=== PATIENT | male | born 1940 | race Caucasian/White ===

== ENCOUNTER 2017-05-27 14:53 | Observation (INO) | payer MEDICARE ==
[~2017-05-27] VITALS: Ht 170.2 cm; Wt 80.0 kg
[~2017-05-27 14:53] MED LIST: ATEN50 PO; COUM5TAB PO; HYDR-2768 PO; LOSA50TA PO; OMEP20CA5 PO; PERC10TA27 PO; PRAV20 PO
[2017-05-27 15:02] VITALS: BP 229/114; PULSE 76; RESP 16; TEMP 98; O2SAT 97
--- NOTE | 2017-05-27 15:06 | PD ---
HPI Chief Complaint: Pain: Acute or Chronic Time Seen by Provider: 15:06 Travel History International Travel<30 days: No Contact w/Intl Traveler<30days: No Traveled to known affect area: No History of Present Illness HPI 76-year-old male came to the emergency room with history of lower back pain radiating to the left hip up to the left knee. Patient says this has been going on for past 2 weeks. Patient has history of chronic lower back pain and in fact has had multiple surgeries done by Dr. Marrero in the past. He also has a TENS unit but the battery has run out. He goes to physical therapy but for past 3-4 days he has been unable to get out of bed because of the severe pain. He says usually his pain radiates down his right leg but the left hip and leg pain is new. He is having hard time even turning on the bed because of the pain. No history of fever or chills. No history of recent trauma. is here with him who is giving majority of the history. She was unable to get him out of the bed and had to call EMS who brought him here. Patient is awake and answering questions appropriately however. He is hypertensive and his thinks it's mainly because of the pain. [facility] Past Medical History Narrative Medical List of his past medical, surgical, social and family history is reviewed from the nursing note. Asthma: Yes (CHILDHOOD) Blood Disorders: No Heart Rhythm Problems: Yes Cancer: Yes (prostate ca) Cardiovascular Problems: No High Cholesterol: Yes Chemotherapy: Yes Chest Pain: No Cerebrovascular Accident: Yes Diabetes: No Diminished Hearing: No Deep Vein Thrombosis: Yes Endocrine: No GERD: No Genitourinary: No Headaches: Yes Hepatitis: No Hiatal Hernia: No Hypertension: Yes Immune Disorder: No Implanted Vascular Access Dvce: Yes Musculoskeletal: Yes (arthritis neck pain) Neurologic: Yes (stroke 2003 , PE L leg 2008 ) Psychiatric: No Reproductive: No Respiratory: No Thyroid Disease: No Ulcer: No Past Surgical History Abdominal Surgery: Yes (abd infection post battery insertion for spinal cord stiumlator 2010) AICD: No Body Medical Devices: wires from stimulator in back, HARDWARE IN BACK, WITH CAGES Cardiac Surgery: No Ear Surgery: No Endocrine Surgery: No Genitourinary Surgery: No Gynecologic Surgery: No Joint Replacement: No Neurologic Surgery: Yes (STIMULATER ON 2008/REMOVED) Oral Surgery: No Pacemaker: No Thoracic Surgery: No Other Surgery: Yes (MANY BACK SURGERYS 2 CAGES TO L2 L4) Social History Alcohol Use: No Tobacco Use: No Substance Use: No Allergies-Medications (Allergen,Severity, Reaction): Coded Allergies: Penicillin (Verified Allergy, Severe, ARM SWELLED AT SITE, 05/27/17) MRI PRECAUTION (Verified Adverse Reaction, Severe, 05/27/17) cages and screws in back and neck Comments List of the allergies reviewed from the nursing note. Reported Meds & Prescriptions Reported Meds & Active Scripts Active Reported Atenolol 100 Mg Tab 100 Mg PO DAILY Hydrochlorothiazide 12.5 Mg Tab 12.5 Mg PO DAILY Omeprazole 20 Mg Cap 20 Mg PO BID Percocet (Oxycodone-Acetaminophen) 10-325 mg Tab 1 Tab PO BID Pravastatin 40 Mg Tab 40 Mg PO HS Aspirin 81 (Aspirin) 81 Mg Tabdr 81 Mg PO HS Amlodipine (Amlodipine Besylate) 10 Mg Tab 10 Mg PO DAILY Losartan (Losartan Potassium) 50 Mg Tab 50 Mg PO DAILY Narrative Medication List of the home medications reviewed from the nursing note. Review of Systems Except as stated in HPI: all other systems reviewed are Neg Physical Exam Narrative GENERAL: Awake, alert, moderate distress SKIN: Focused skin assessment warm/dry. HEAD: Atraumatic. Normocephalic. EYES: Pupils equal and round. No scleral icterus. No injection or drainage. ENT: No nasal bleeding or discharge. Mucous membranes pink and moist. NECK: Trachea midline. No JVD. CARDIOVASCULAR: Regular rate and rhythm. No murmur appreciated. RESPIRATORY: No accessory muscle use. Clear to auscultation. Breath sounds equal bilaterally. GASTROINTESTINAL: Abdomen soft, non-tender, nondistended. Hepatic and splenic margins not palpable. MUSCULOSKELETAL: No obvious deformities. No clubbing. No cyanosis. No edema. Tender over the left greater trochanter. Decreased range of motion at the hip joint and knee joint due to the pain NEUROLOGICAL: Awake and alert. No obvious cranial nerve deficits. Motor grossly within normal limits. Normal speech. PSYCHIATRIC: Appropriate mood and affect; insight and judgment normal. Data Data Last Documented VS Vital Signs Date Time Temp Pulse Resp B/P Pulse Ox O2 Delivery O2 Flow Rate FiO2 05/27/17 15:02 98.0 76 16 229/114 97 Orders Complete Blood Count With Diff (05/27/17 15:49) Basic Metabolic Panel (Bmp) (05/27/17 15:49) C-Reactive Protein (Crp) (05/27/17 15:49) Westergren Sedimentation Rate (05/27/17 15:49) Hydromorphone Pf Inj (Dilaudid Pf Inj) (05/27/17 16:00) Ct Hip W Iv Contrast (05/27/17 ) Ct Pelvis W Iv Contrast(Rout) (05/27/17 16:13) Ct Lumb Spine W Iv Contrast (05/27/17 ) Iohexol 350 Inj (Omnipaque 350 Inj) (05/27/17 18:32) Admit Order (Ed Use Only) (05/27/17 ) Labs Laboratory Tests Test 05/27/17 16:40 White Blood Count 10.2 TH/MM3 Red Blood Count 5.58 MIL/MM3 Hemoglobin 14.9 GM/DL Hematocrit 45.3 % Mean Corpuscular Volume 81.1 FL Mean Corpuscular Hemoglobin 26.7 PG Mean Corpuscular Hemoglobin 33.0 % Concent Red Cell Distribution Width 16.0 % Platelet Count 175 TH/MM3 Mean Platelet Volume 8.9 FL Neutrophils (%) (Auto) 81.9 % Lymphocytes (%) (Auto) 11.0 % Monocytes (%) (Auto) 6.2 % Eosinophils (%) (Auto) 0.6 % Basophils (%) (Auto) 0.3 % Neutrophils # (Auto) 8.4 TH/MM3 Lymphocytes # (Auto) 1.1 TH/MM3 Monocytes # (Auto) 0.6 TH/MM3 Eosinophils # (Auto) 0.1 TH/MM3 Basophils # (Auto) 0.0 TH/MM3 CBC Comment DIFF FINAL Differential Comment Erythrocyte Sedimentation Rate 6 mm/hr Sodium Level 139 MEQ/L Potassium Level 4.0 MEQ/L Chloride Level 104 MEQ/L Carbon Dioxide Level 29.1 MEQ/L Anion Gap 6 MEQ/L Blood Urea Nitrogen 21 MG/DL Creatinine 1.18 MG/DL Estimat Glomerular Filtration 60 ML/MIN Rate Random Glucose 96 MG/DL Calcium Level 9.5 MG/DL C-Reactive Protein LESS THAN 0.29 MG/DL MDM Medical Decision Making Medical Screen Exam Complete: Yes Emergency Medical Condition: Yes Medical Record Reviewed: Yes Differential Diagnosis Acute on chronic pain, greater trochanter bursitis, myositis Narrative Course 5:09 PM awaiting for the blood test and the CAT scan to be done and resulted. Patient was medicated for pain. Patient cannot get an MRI due to the TENS unit and the wire going up into his spine. Case had been signed over to the oncoming ER physician. Procedures EKG Prior to Arrival: Ricco Sandhu MD May 27, 2017 15:06
[2017-05-27] MEDS ORDERED: HYDROmorphone HCL PF 1 MG/ML VIAL IV PUSH ONE (16:00)
[2017-05-27] MEDS ORDERED: OMEP20CA2 PO (16:28)
[2017-05-27] MEDS ORDERED: ASPI-110 PO (16:28)
[2017-05-27] MEDS ORDERED: PERC10TA27 PO (16:28)
[2017-05-27] MEDS ORDERED: LOSA50TA PO (16:28)
[2017-05-27] MEDS ORDERED: PRAV40TA2 PO (16:28)
[2017-05-27] MEDS ORDERED: AMLO10TA2 PO (16:28)
[2017-05-27] MEDS ORDERED: HYDR12.56 PO (16:28)
[2017-05-27] MEDS ORDERED: ATEN100T PO (16:28)
[2017-05-27 16:59] LABS: AUTOMATED NEUTROPHIL # 8.4 TH/MM3 (1.8-7.7); BASOPHIL % 0.3 % (0.0-2.0); EOSINOPHIL # 0.1 TH/MM3 (0-0.4); EOSINOPHIL % 0.6 % (0.0-4.0); HEMATOCRIT 45.3 % (39.0-51.0); HEMO FLAGS DIFF FINAL; LYMPHOCYTE # 1.1 TH/MM3 (1.0-4.8); MEAN CELL VOLUME 81.1 FL (80.0-100.0); MEAN CORPUSCULAR HEMOGLOBIN 26.7 PG (27.0-34.0); MONO % 6.2 % (0.0-8.0); NEUT % 81.9 % (16.0-70.0); PLATELET COUNT 175 TH/MM3 (150-450); RED BLOOD COUNT 5.58 MIL/MM3 (4.50-5.90); WHITE BLOOD COUNT 10.2 TH/MM3 (4.0-11.0)
[2017-05-27 17:26] LABS: ANION GAP 6 MEQ/L (5-15); BICARBONATE 29.1 MEQ/L (21.0-32.0); BLOOD UREA NITROGEN 21 MG/DL (7-18); CHLORIDE 104 MEQ/L (98-107); GLOMERULAR FILTRATION RATE 60 ML/MIN (>89); SODIUM (NA) 139 MEQ/L (136-145)
[2017-05-27] MEDS ORDERED: IOHEXOL 350 MG/ML 10 ML VIAL (for RAD DIAG) IV ONE (18:32)
--- NOTE | 2017-05-27 19:13 | RADRPT ---
EXAM DATE/TIME: 05/27/2017 18:15 [facility] COMPARISON: No previous studies available for comparison. INDICATIONS : Pelvic pain for two weeks. IV CONTRAST: 75 cc Omnipaque 350 (iohexol) IV ORAL CONTRAST: No oral contrast ingested. RADIATION DOSE: 10.72 CTDIvol (mGy) ; Combined studies MEDICAL HISTORY : Hypertension. Carcinoma, prostate. GERD, CVA, SURGICAL HISTORY : Fusion, lumbar. Abdomen sx. ENCOUNTER: Initial ACUITY: 2 weeks PAIN SCALE: 9/10 LOCATION: Bilateral lower back. TECHNIQUE: Volumetric scanning of the pelvis was performed. Using automated exposure control and adjustment of t he mA and/or kV according to patient size, radiation dose was kept as low as reasonably achievable to obtain optimal diagnostic quality images. DICOM format image data is available electronically for review and comparison. FINDINGS: There is previous fusion of the lumbar spine across the lumbosacral junction. The prostate is enlarged with impression on the base of the bladder. There is mild osteoarthritis at both hips and at the sacroiliac joints. No pelvic masses or adenopathy. A small right hydrocele. CONCLUSION: 1. Previous fusion of lumbar spine. Mild osteoarthritis of the hips. Enlarged prostate with impressio n on the base of bladder. No pelvic adenopathy. Hernesto Walls MD on May 27, 2017 at 19:06 Board Certified Radiologist. This report was verified electronically.
--- NOTE | 2017-05-27 19:23 | RADRPT ---
EXAM DATE/TIME: 05/27/2017 18:15 [facility] COMPARISON: No previous studies available for comparison. INDICATIONS : Left hip pain for two weeks. IV CONTRAST: 75 cc Omnipaque 350 (iohexol) IV RADIATION DOSE: 10.68 CTDIvol (mGy) ; Combined studies MEDICAL HISTORY : Hypertension. Carcinoma, prostate. GERD, CVA, DVT SURGICAL HISTORY : Fusion, lumbar. Abdomen sx, ENCOUNTER: Initial ACUITY: 2 weeks PAIN SCALE: 9/10 LOCATION: Left hip TECHNIQUE: Volumetric scanning of the hip was performed. Using automated exposure control and adjustment of the mA and/or kV according to patient size, radiation dose was kept as low as reasonably achievable to o btain optimal diagnostic quality images. DICOM format image data is available electronically for rev iew and comparison. FINDINGS: There is mild osteoarthritis of the left hip. No significant joint effusion identified. No bony destr uctive changes. There is previous fusion of the lumbar spine. Stimulator wires are seen in the soft t issues posteriorly. Prostate enlarged. CONCLUSION: 1. Mild osteoarthritis of the left hip. Hernesto Walls MD on May 27, 2017 at 19:19 Board Certified Radiologist. This report was verified electronically.
--- NOTE | 2017-05-27 19:34 | RADRPT ---
EXAM DATE/TIME: 05/27/2017 18:10 [facility] COMPARISON: CT ABDOMEN & PELVIS W CONTRAST, January 06, 2015, 3:16. INDICATIONS : Back pain IV CONTRAST: 75 cc Omnipaque 350 (iohexol) IV RADIATION DOSE: 10.68 CTDIvol (mGy) ; Combined studies MEDICAL HISTORY : Hypertension. Carcinoma, prostate. DVT, CVA, GERD, SURGICAL HISTORY : Fusion, lumbar. Abdomen sx., Neuro Stimulator ENCOUNTER: Initial ACUITY: 2 weeks PAIN SCALE: 9/10 LOCATION: Bilateral lower back TECHNIQUE: Volumetric scanning of the lumbar spine was performed. Multiplanar reconstructions in the sagittal, coronal and oblique axial planes were performed. Using automated exposure control and adjustment of the mA and/or kV according to patient size, radiation dose was kept as low as reasonably achievable t o obtain optimal diagnostic quality images. DICOM format image data is available electronically for review and comparison. FINDINGS: There is transpedicular screw and godfrey fixation at every level from L1-S1 with disc spacers present. T here is some chronic appearing erosive changes on both sides of the disc space at the lumbosacral izzy ction similar to a prior abdomen CT from 2014. There is no significant residual bony canal stenosis. Multiple posterior laminectomies are present. There is no new fracture or spondylolisthesis. No signi ficant bony foraminal stenosis is identified. CONCLUSION: 1. Postoperative fusion of the lumbar spine as above without significant residual bony canal or bony foraminal stenosis. Findings are similar to an abdomen CT examination from December 2014. Spinal stimula tor wires are seen extending into the lower thoracic spinal canal. Hernesto Walls MD on May 27, 2017 at 19:28 Board Certified Radiologist. This report was verified electronically.
--- NOTE | 2017-05-27 20:05 | PD ---
Data Data Last Documented VS Vital Signs Date Time Temp Pulse Resp B/P Pulse Ox O2 Delivery O2 Flow Rate FiO2 05/27/17 15:02 98.0 76 16 229/114 97 Orders Complete Blood Count With Diff (05/27/17 15:49) Basic Metabolic Panel (Bmp) (05/27/17 15:49) C-Reactive Protein (Crp) (05/27/17 15:49) Westergren Sedimentation Rate (05/27/17 15:49) Hydromorphone Pf Inj (Dilaudid Pf Inj) (05/27/17 16:00) Ct Hip W Iv Contrast (05/27/17 ) Ct Pelvis W Iv Contrast(Rout) (05/27/17 16:13) Ct Lumb Spine W Iv Contrast (05/27/17 ) Iohexol 350 Inj (Omnipaque 350 Inj) (05/27/17 18:32) Admit Order (Ed Use Only) (05/27/17 ) Labs Laboratory Tests Test 05/27/17 16:40 White Blood Count 10.2 TH/MM3 Red Blood Count 5.58 MIL/MM3 Hemoglobin 14.9 GM/DL Hematocrit 45.3 % Mean Corpuscular Volume 81.1 FL Mean Corpuscular Hemoglobin 26.7 PG Mean Corpuscular Hemoglobin 33.0 % Concent Red Cell Distribution Width 16.0 % Platelet Count 175 TH/MM3 Mean Platelet Volume 8.9 FL Neutrophils (%) (Auto) 81.9 % Lymphocytes (%) (Auto) 11.0 % Monocytes (%) (Auto) 6.2 % Eosinophils (%) (Auto) 0.6 % Basophils (%) (Auto) 0.3 % Neutrophils # (Auto) 8.4 TH/MM3 Lymphocytes # (Auto) 1.1 TH/MM3 Monocytes # (Auto) 0.6 TH/MM3 Eosinophils # (Auto) 0.1 TH/MM3 Basophils # (Auto) 0.0 TH/MM3 CBC Comment DIFF FINAL Differential Comment Erythrocyte Sedimentation Rate 6 mm/hr Sodium Level 139 MEQ/L Potassium Level 4.0 MEQ/L Chloride Level 104 MEQ/L Carbon Dioxide Level 29.1 MEQ/L Anion Gap 6 MEQ/L Blood Urea Nitrogen 21 MG/DL Creatinine 1.18 MG/DL Estimat Glomerular Filtration 60 ML/MIN Rate Random Glucose 96 MG/DL Calcium Level 9.5 MG/DL C-Reactive Protein LESS THAN 0.29 MG/DL [facility] Supervised Visit with CECILY: Yes Narrative Course patient is a 76-year-old male with history of chronic low back pain and chronic bilateral hip pain presents with worsening left hip pain for the past 2 weeks. Patient states he's been unable to ambulate for the past 2 days. Concerned his called 911 because she couldn't get him to the bathroom this morning. Patient has had CTs of his low back and left hip with and without contrast showing arthritis without any acute surgical abnormality. Patient on my evaluation does have fairly good strength in plantar flexion of bilateral lower extremities. However he is unable to ambulate. Diagnosis Primary Impression: Hip pain, left Admitting Information Admitting Physician Requests: Observation Condition: Stable Demetri Mccall MD May 27, 2017 20:04
--- NOTE | 2017-05-27 20:39 | HHI.HP ---
HPI Service [facility] Primary Care Physician Av Pacheco MD Admission Diagnosis Inability to ambulate, Left hip pain, low back pain. Diagnoses: (1) Intractable back pain Diagnosis: Principal (2) Chronic back pain Diagnosis: Principal (3) Hip pain, left Diagnosis: Principal (4) HTN (hypertension) Diagnosis: Principal Travel History International Travel<30 Days: No Contact w/Intl Traveler <30 Da: No Traveled to Known Affected Are: No History of Present Illness This is a 76-year-old male with a PMH of Chronic Back Pain, s/p TENS, HTN, Hyperlipidemia and Prostate CA who was brought to the ER secondary to severe back/hip pain and inability to ambulate. Per , pt follows w/ Dr. Durham and underwent spinal steroid injection approx 6 months ago w/ significant improvement in pain/ambulation. Has been walking w/ a cane x10yrs, states unchanged. Over the last 2wks, pt has had progressive increase in pain. states Ortho, Dr. Schmidt out of town at the moment and were seen by PCP, Dr. Pacheco, who referred him to PT. Started Physical Therapy 3 days ago on Tuesday, Tuesday had c/o severe back/left hip pain, states patient unable to get out of bed. No injury/trauma, no incontinence. Pt reports TENS unit is out of battery, scheduled to see Dr. Durham on Jun 07 w/ plans for battery replacement. On arrival, BP 229/114, HR 76, O2 sat 97, Afebrile. CBC unremarkable. Chemistry essentially unremarkable. CT L-spine postop fusion of lumbar spine, no residual bony canal or bony foraminal stenosis. CT Lower Extremity mild ostial arthritis of left hip. CT Pelvis previous fusion of lumbar spine, mild osteo-arthritis of the hips, enlarged prostate. S/p Dilaudid in ER w/ minimal improvement, continues to be unable to ambulate. Review of Systems Except as stated in HPI: all other systems reviewed are Neg ROS: 14 point review of systems otherwise negative. Past Family Social History Past Medical History PMH: Chronic Back Pain, s/p TENS, HTN, Hyperlipidemia and Prostate CA Past Surgical History PAST SURGICAL HISTORY: Spinal Cord Stimulator, Lumbar Fusion Allergies: Coded Allergies: Penicillin (Verified Allergy, Severe, ARM SWELLED AT SITE, 05/27/17) MRI PRECAUTION (Verified Adverse Reaction, Severe, 05/27/17) cages and screws in back and neck Family History PAST FAMILY HISTORY: Reviewed. No h/o DM or CAD Social History PAST SOCIAL HISTORY: Negative for alcohol, tobacco or drugs. Physical Exam Vital Signs Vital Signs Date Time Temp Pulse Resp B/P Pulse Ox O2 Delivery O2 Flow Rate FiO2 05/27/17 15:02 98.0 76 16 229/114 97 Physical Exam PE: GENERAL: Very pleasant elderly white male in no acute distress, appears younger than stated age. at bedside. HEENT: PERRLA, EOMI. No scleral icterus or conjunctival pallor. No lid lag or facial droop. CARDIOVASCULAR: Regular rate and rhythm. No obvious murmurs to auscultation. No chest tenderness to palpation. RESPIRATORY: No obvious rhonchi or wheezing. Clear to auscultation. Breath sounds equal bilaterally. GASTROINTESTINAL: Abdomen soft, non-tender, nondistended. BS normal. MUSCULOSKELETAL: Extremities without clubbing, cyanosis, or edema. No obvious deformities. Decreased ROM of left hip due to pain. NEUROLOGICAL: Awake, alert and oriented x4. No focal neurologic deficits. Moving both upper and lower extremities spontaneously. Laboratory Laboratory Tests Test 05/27/17 16:40 White Blood Count 10.2 Red Blood Count 5.58 Hemoglobin 14.9 Hematocrit 45.3 Mean Corpuscular Volume 81.1 Mean Corpuscular Hemoglobin 26.7 Mean Corpuscular Hemoglobin 33.0 Concent Red Cell Distribution Width 16.0 Platelet Count 175 Mean Platelet Volume 8.9 Neutrophils (%) (Auto) 81.9 Lymphocytes (%) (Auto) 11.0 Monocytes (%) (Auto) 6.2 Eosinophils (%) (Auto) 0.6 Basophils (%) (Auto) 0.3 Neutrophils # (Auto) 8.4 Lymphocytes # (Auto) 1.1 Monocytes # (Auto) 0.6 Eosinophils # (Auto) 0.1 Basophils # (Auto) 0.0 CBC Comment DIFF FINAL Differential Comment Erythrocyte Sedimentation Rate 6 Sodium Level 139 Potassium Level 4.0 Chloride Level 104 Carbon Dioxide Level 29.1 Anion Gap 6 Blood Urea Nitrogen 21 Creatinine 1.18 Estimat Glomerular Filtration 60 Rate Random Glucose 96 Calcium Level 9.5 C-Reactive Protein LESS THAN 0.29 Result Diagram: 05/27/17 1640 05/27/17 1640 Assessment and Plan Problem List: (1) Intractable back pain ICD Code: M54.9 Status: Acute (2) Hip pain, left ICD Code: M25.552 Status: Acute (3) Chronic back pain ICD Code: G89.29 Status: Chronic (4) HTN (hypertension) ICD Code: I10 Status: Acute Assessment and Plan A/P: 1. Intractable Back Pain: c/o severe/intractable back pain unrelieved by Dilaudid in ER. No injury/trauma, no incontinence. CT L-Spine w/ previous lumbar fusion, no residual bony canal or bony foraminal stenosis, images reviewed by me. Continue with analgesics as needed. Solu-Medrol, muscle relaxants, PT for eval/tx. 2. Left Hip Pain: progressive c/o back/hip pain x2 wks w/ acute worsening left hip pain following Physical Therapy. CT Pelvis w/ mild osteoarthritis, CT Lower Extremity w/ mild osteoarthritis of left hip,images reviewed by me. Follows w/ Dr. Schmidt as outpatient, plans for outpatient follow up. Continue w/ treatment as above, PT for eval/tx. 3. Chronic Back Pain: w/ Acute Exacerbation. Follows w/ Dr. Durham as outpatient, previous Spinal Steroid injection approx 6mo ago w/ success, now w/ progressive pain. TENS unit w/ plans for battery replacement. Upcoming appt Jun 07, will consult Dr. Durham for further eval/recommendations. 4. HTN: Uncontrolled, likely compounded by pain complaints. Optimize pain control. Resume home medications, monitor BP. 5. DVT Prophylaxis: SCD/Teds. 6. Social work for d/c planning as needed. 7. Case discussed w/ ER physician at length. Vidhya Sainz MD May 27, 2017 20:39
[2017-05-27] MEDS ORDERED: MAGNESIUM HYDROXIDE SUSP 30 ML CUP PO PRN (20:45)
[2017-05-27] MEDS ORDERED: methylPREDNISolone SOD SUCC 125 MG/2 ML VIAL IV PUSH ONE (20:45)
[2017-05-27] MEDS ORDERED: SODIUM CHLORIDE 0.9% FLUSH 10 ML FLUSH IV FLUSH PRN (20:45)
[2017-05-27] MEDS ORDERED: LACTULOSE SYRUP 20 GM/30 ML CUP PO PRN (20:45)
[2017-05-27] MEDS ORDERED: ONDANSETRON HCL 4 MG/2 ML VIAL IVP PRN (20:45)
[2017-05-27] MEDS ORDERED: DIAZEPAM 5 MG TAB PO PRN (20:45)
[2017-05-27] MEDS ORDERED: ACETAMINOPHEN 325 MG TAB PO PRN (20:45)
[2017-05-27] MEDS ORDERED: SENNOSIDES 8.6 MG TAB PO PRN (20:45)
[2017-05-27] MEDS ORDERED: BISACODYL 10 MG SUPP RECTAL PRN (20:45)
[2017-05-27] MEDS: ASPIRIN EC 81 MG TABEC PO SCH (21:00)
[2017-05-27] MEDS: PRAVASTATIN SOD 40 MG TAB PO SCH (21:00)
[2017-05-27] MEDS: DOCUSATE SODIUM 50 MG/SENNA 8.6 MG TAB PO SCH (21:00)
[2017-05-27] MEDS: SODIUM CHLORIDE 0.9% FLUSH 10 ML FLUSH IV FLUSH SCH (21:00)
[2017-05-27] MEDS: PANTOPRAZOLE SOD 20 MG DELAYED RELEASE TAB PO SCH (21:15)
[2017-05-27 22:41] VITALS: BP 217/105; PULSE 63; RESP 18; O2SAT 99
[2017-05-27] MEDS: HYDROmorphone HCL PF 1 MG/ML VIAL IV PRN (22:41)
[2017-05-27] MEDS ORDERED: METOPROLOL TARTRATE 5 MG/5 ML VIAL IV PUSH ONE (22:45)
[2017-05-27] MEDS ORDERED: hydrALAZINE HCL 20 MG/ML VIAL IV PUSH ONE (22:45)
[2017-05-27 23:32] VITALS: BP 200/93; PULSE 67; RESP 18; O2SAT 99
[2017-05-28] VITALS (9 sets, daily range): BP systolic 131–189; BP diastolic 67–90; PULSE 61–88; RESP 16–18; TEMP 97.1–98.1; O2SAT 90–99
[2017-05-28] MEDS: HYDROmorphone HCL PF 1 MG/ML VIAL IV PRN ×3 (02:15→14:43)
[2017-05-28] MEDS ORDERED: hydrALAZINE HCL 20 MG/ML VIAL IV PUSH ONE (02:30)
[2017-05-28] MEDS ORDERED: METOPROLOL TARTRATE 5 MG/5 ML VIAL IV PUSH ONE (02:30)
[2017-05-28 06:08] LABS: AUTOMATED NEUTROPHIL # 9.3 TH/MM3 (1.8-7.7); BASOPHIL % 0.1 % (0.0-2.0); EOSINOPHIL % 0.1 % (0.0-4.0); HEMO FLAGS DIFF FINAL; LYMPH % 7.4 % (9.0-44.0); LYMPHOCYTE # 0.7 TH/MM3 (1.0-4.8); MEAN CELL VOLUME 79.5 FL (80.0-100.0); MEAN CORPUSCULAR HEMOGLOBIN 27.4 PG (27.0-34.0); MEAN CORPUSCULAR HGB CONC 34.5 % (32.0-36.0); NEUT % 91.4 % (16.0-70.0); PLATELET COUNT 171 TH/MM3 (150-450); RED BLOOD COUNT 5.67 MIL/MM3 (4.50-5.90); RED CELL DISTRIBUTION WIDTH 15.8 % (11.6-17.2); WHITE BLOOD COUNT 10.2 TH/MM3 (4.0-11.0)
[2017-05-28 06:12] LABS: ALT (GPT) 16 U/L (12-78); ANION GAP 8 MEQ/L (5-15); AST (GOT) 13 U/L (15-37); BICARBONATE 26.7 MEQ/L (21.0-32.0); BLOOD UREA NITROGEN 22 MG/DL (7-18); CHLORIDE 102 MEQ/L (98-107); GLOMERULAR FILTRATION RATE 55 ML/MIN (>89); POTASSIUM 3.6 MEQ/L (3.5-5.1); SODIUM (NA) 137 MEQ/L (136-145)
[2017-05-28 06:13] LABS: ALKALINE PHOSPHATASE 64 U/L (45-117); TOTAL BILIRUBIN ADULT 0.8 MG/DL (0.2-1.0)
[2017-05-28] MEDS ORDERED: oxyCODONE/ACETAMINOPHEN 10 MG/325 MG TAB PO PRN (08:00)
[2017-05-28] MEDS: LOSARTAN 50 MG TAB PO SCH (08:15)
[2017-05-28] MEDS: DOCUSATE SODIUM 50 MG/SENNA 8.6 MG TAB PO SCH ×2 (08:15→20:01)
[2017-05-28] MEDS: ATENOLOL 100 MG TAB PO SCH (08:15)
[2017-05-28] MEDS: HYDROCHLOROTHIAZIDE 12.5 MG CAP PO SCH (08:15)
[2017-05-28] MEDS: PANTOPRAZOLE SOD 20 MG DELAYED RELEASE TAB PO SCH ×2 (08:15→20:01)
[2017-05-28] MEDS: SODIUM CHLORIDE 0.9% FLUSH 10 ML FLUSH IV FLUSH SCH ×2 (08:16→20:01)
--- NOTE | 2017-05-28 09:11 | HHI.PR ---
Subjective Remarks Follow up for intractable back pain. Mr. Miller reports no fever, chills. Currently doing well in bed. However, when he ambulates, he has significant difficulty due to low back pain, hip pain. Objective Vitals Vital Signs Date Time Temp Pulse Resp B/P Pulse Ox O2 Delivery O2 Flow Rate FiO2 05/28/17 08:46 97.1 70 165/79 90 05/28/17 05:49 97.6 68 18 167/82 96 05/28/17 04:49 66 18 131/67 95 Room Air 05/28/17 03:05 98.1 70 18 162/78 95 Room Air 05/28/17 02:51 80 16 189/79 99 Nasal Cannula 2 05/28/17 02:44 16 05/28/17 02:44 16 05/28/17 00:30 88 16 177/90 99 Room Air 05/27/17 23:32 67 18 200/93 99 Room Air 05/27/17 22:41 63 18 217/105 99 Room Air 05/27/17 15:02 98.0 76 16 229/114 97 I/O 05/27/17 05/27/17 05/27/17 05/28/17 05/28/17 05/28/17 07:00 15:00 23:00 07:00 15:00 23:00 Intake Total 120 ml Balance 120 ml Intake Oral 120 ml Result Diagram: 05/28/17 0450 05/28/17 0450 Imaging Last Impressions Pelvis CT 05/27/17 1613 Signed Impressions: Service Date/Time: Saturday, May 27, 2017 18:15 - CONCLUSION: 1. Previous fusion of lumbar spine. Mild osteoarthritis of the hips. Enlarged prostate with impression on the base of bladder. No pelvic adenopathy. Hernesto Walls MD Lumbar Spine CT 05/27/17 0000 Signed Impressions: Service Date/Time: Saturday, May 27, 2017 18:10 - CONCLUSION: 1. Postoperative fusion of the lumbar spine as above without significant residual bony canal or bony foraminal stenosis. Findings are similar to an abdomen CT examination from December 2014. Spinal stimulator wires are seen extending into the lower thoracic spinal canal. Hernesto Walls MD Lower Extremity CT 05/27/17 0000 Signed Impressions: Service Date/Time: Saturday, May 27, 2017 18:15 - CONCLUSION: 1. Mild osteoarthritis of the left hip. Hernesto Walls MD Objective Remarks GENERAL: AOX3, NAD. SKIN: Warm and dry. HEAD: Normocephalic. EYES: No scleral icterus. No injection or drainage. NECK: Supple, trachea midline. No JVD or lymphadenopathy. CARDIOVASCULAR: Regular rate and rhythm without murmurs, gallops, or rubs. RESPIRATORY: Breath sounds equal bilaterally. No accessory muscle use. GASTROINTESTINAL: Abdomen soft, non-tender, nondistended. MUSCULOSKELETAL: No cyanosis, or edema. 5/5 strength in b/l Lower ext. BACK: Nontender without obvious deformity. No CVA tenderness. Procedures None. A/P Problem List: (1) Intractable back pain ICD Code: M54.9 Status: Acute (2) Hip pain, left ICD Code: M25.552 Status: Acute (3) Chronic back pain ICD Code: G89.29 Status: Chronic (4) HTN (hypertension) ICD Code: I10 Status: Acute Assessment and Plan This is a 76-year-old male with a PMH of Chronic Back Pain, s/p TENS, HTN, Hyperlipidemia and Prostate CA who was brought to the ER secondary to severe back/hip pain and inability to ambulate. Patient follows w/ Dr. Durham and underwent spinal steroid injection approx 6 months ago w/ significant improvement in pain/ambulation. He has been experiencing progressive increase in pain in the last two weeks. On arrival, BP 229/114, HR 76, O2 sat 97, Afebrile. CBC unremarkable. Chemistry essentially unremarkable. CT L-spine postop fusion of lumbar spine, no residual bony canal or bony foraminal stenosis. CT Lower Extremity mild ostial arthritis of left hip. CT Pelvis previous fusion of lumbar spine, mild osteo-arthritis of the hips, enlarged prostate. - Intractable acute on chronic back pain - Discussed with PT. Patient does well when he starts to ambulate but then progressively gets worse. - PT and patient feels that his lower back spasm prevents better ambulation. - Will start patient on Flexeril 10mg TID. - Continue Oxycodone PRN for pain and Dilaudid IV for breakthrough. D/C Valium. - Discussed with patient's who would prefer it if patient could get a spinal steroid while he is in the hospital. - Patient follows local pain management Dr. Durham who plans to change battery of the TENS system. - Patient also has a neurosurgery appointment coming up. - Left hip pain - CT Pelvis w/ mild osteoarthritis, CT Lower Extremity w/ mild osteoarthritis of left hip - Outpatient evaluation by orthopedic surgery would be beneficial. - Uncontrolled hypertension - Pain likely a significant contributor. - Currently normotensive. - Continue Amlodipine 10mg Qday, Atenolol 100mg Qday, Losartan 50mg Qday and HCTZ 12.5mg Qday. - Hyperlipidemia - Continue Pravastatin - GERD - Protonix 20mg BID. Full code. SCDs. Yazmin Mujica DO May 28, 2017 09:11
[2017-05-28] MEDS: CYCLOBENZAPRINE HCL 10 MG TAB PO SCH ×2 (10:02→18:22)
[2017-05-28] MEDS: PRAVASTATIN SOD 40 MG TAB PO SCH (20:00)
[2017-05-28] MEDS: ASPIRIN EC 81 MG TABEC PO SCH (20:01)
[2017-05-29 00:09] VITALS: BP 159/80; PULSE 63; RESP 17; TEMP 97.7; O2SAT 94
[2017-05-29] MEDS: HYDROmorphone HCL PF 1 MG/ML VIAL IV PRN ×2 (01:01→09:01)
[2017-05-29] MEDS: CYCLOBENZAPRINE HCL 10 MG TAB PO SCH ×3 (01:01→18:11)
[2017-05-29 04:24] VITALS: BP 170/79; PULSE 53; RESP 17; TEMP 98.8; O2SAT 95
[2017-05-29 08:09] VITALS: BP 200/105; PULSE 63; RESP 16; TEMP 98.2; O2SAT 95
[2017-05-29] MEDS: PANTOPRAZOLE SOD 20 MG DELAYED RELEASE TAB PO SCH ×2 (09:07→21:37)
[2017-05-29] MEDS: HYDROCHLOROTHIAZIDE 12.5 MG CAP PO SCH (09:07)
[2017-05-29] MEDS: DOCUSATE SODIUM 50 MG/SENNA 8.6 MG TAB PO SCH ×2 (09:08→21:36)
[2017-05-29] MEDS: ATENOLOL 100 MG TAB PO SCH (09:08)
[2017-05-29] MEDS: LOSARTAN 50 MG TAB PO SCH (09:08)
[2017-05-29] MEDS: SODIUM CHLORIDE 0.9% FLUSH 10 ML FLUSH IV FLUSH SCH ×2 (09:09→21:38)
--- NOTE | 2017-05-29 09:11 | HHI.PR ---
Subjective Remarks Follow-up for intractable lower back pain, hip pain. Patient is resting in bed. He complains of persistent 10 out of 10 pain in the lower back and hip. He is unable to ambulate much in the room. No fever or chills. Objective Vitals Vital Signs Date Time Temp Pulse Resp B/P Pulse Ox O2 Delivery O2 Flow Rate FiO2 05/29/17 08:09 98.2 63 16 95 200/105 05/29/17 04:24 98.8 53 17 170/79 95 05/29/17 00:09 97.7 63 17 159/80 94 05/28/17 19:26 98.0 65 18 155/82 97 05/28/17 15:16 98.0 61 137/75 93 05/28/17 15:13 18 05/28/17 11:32 97.7 66 134/75 94 05/28/17 09:15 18 I/O 05/28/17 05/28/17 05/28/17 05/29/17 05/29/17 05/29/17 07:00 15:00 23:00 07:00 15:00 23:00 Intake Total 120 ml Output Total 475 ml Balance 120 ml -475 ml Intake Oral 120 ml Output Urine Total 475 ml Result Diagram: 05/28/17 0450 05/28/17 0450 Imaging Last Impressions Pelvis CT 05/27/17 1613 Signed Impressions: Service Date/Time: Saturday, May 27, 2017 18:15 - CONCLUSION: 1. Previous fusion of lumbar spine. Mild osteoarthritis of the hips. Enlarged prostate with impression on the base of bladder. No pelvic adenopathy. Hernesto Walls MD Lumbar Spine CT 05/27/17 0000 Signed Impressions: Service Date/Time: Saturday, May 27, 2017 18:10 - CONCLUSION: 1. Postoperative fusion of the lumbar spine as above without significant residual bony canal or bony foraminal stenosis. Findings are similar to an abdomen CT examination from December 2014. Spinal stimulator wires are seen extending into the lower thoracic spinal canal. Hernesto Walls MD Lower Extremity CT 05/27/17 0000 Signed Impressions: Service Date/Time: Saturday, May 27, 2017 18:15 - CONCLUSION: 1. Mild osteoarthritis of the left hip. Hernesto Walls MD Objective Remarks GENERAL: AOX3, NAD. SKIN: Warm and dry. HEAD: Normocephalic. EYES: No scleral icterus. No injection or drainage. NECK: Supple, trachea midline. No JVD or lymphadenopathy. CARDIOVASCULAR: Regular rate and rhythm without murmurs, gallops, or rubs. RESPIRATORY: Breath sounds equal bilaterally. No accessory muscle use. GASTROINTESTINAL: Abdomen soft, non-tender, nondistended. MUSCULOSKELETAL: No cyanosis, or edema. 5/5 strength in b/l Lower ext. BACK: Nontender without obvious deformity. No CVA tenderness. Procedures None. A/P Problem List: (1) Intractable back pain ICD Code: M54.9 Status: Acute (2) Hip pain, left ICD Code: M25.552 Status: Acute (3) Chronic back pain ICD Code: G89.29 Status: Chronic (4) HTN (hypertension) ICD Code: I10 Status: Acute Assessment and Plan This is a 76-year-old male with a PMH of Chronic Back Pain, s/p TENS, HTN, Hyperlipidemia and Prostate CA who was brought to the ER secondary to severe back/hip pain and inability to ambulate. Patient follows w/ Dr. Durham and underwent spinal steroid injection approx 6 months ago w/ significant improvement in pain/ambulation. He has been experiencing progressive increase in pain in the last two weeks. On arrival, BP 229/114, HR 76, O2 sat 97, Afebrile. CBC unremarkable. Chemistry essentially unremarkable. CT L-spine postop fusion of lumbar spine, no residual bony canal or bony foraminal stenosis. CT Lower Extremity mild ostial arthritis of left hip. CT Pelvis previous fusion of lumbar spine, mild osteo-arthritis of the hips, enlarged prostate. - Intractable acute on chronic back pain - Discussed with PT. Patient does well when he starts to ambulate but then progressively gets worse. - PT and patient feels that his lower back spasm prevents better ambulation. - Will start patient on Flexeril 10mg TID. - Continue Oxycodone PRN for pain and Dilaudid IV for breakthrough. D/C Valium. - Discussed with patient's who would prefer it if patient could get a spinal steroid while he is in the hospital. - Will discuss with IR tomorrow to see if spinal steroid injection can be done. Otherwise, patient will need to follow up with Dr. Durham. - Patient follows local pain management Dr. Durham who plans to change battery of the TENS system. - Patient also has a neurosurgery appointment coming up. - Left hip pain - CT Pelvis w/ mild osteoarthritis, CT Lower Extremity w/ mild osteoarthritis of left hip - Outpatient evaluation by orthopedic surgery would be beneficial. - Uncontrolled hypertension - Pain likely a significant contributor. BP was in the 200 systolic but improved later in the day. - Currently normotensive. - Continue Amlodipine 10mg Qday, Atenolol 100mg Qday, Losartan 50mg Qday and HCTZ 12.5mg Qday. - Hyperlipidemia - Continue Pravastatin - GERD - Protonix 20mg BID. Full code. SCDs. Yazmin Mujica DO May 29, 2017 9:11 am
[2017-05-29 12:25] VITALS: BP 150/77; PULSE 56; RESP 16; TEMP 98.3; O2SAT 95
[2017-05-29] MEDS: MORPHINE SULFATE 15 MG CONTROLLED RELEASE TAB PO SCH ×2 (14:45→21:36)
[2017-05-29 15:05] VITALS: BP 168/77; PULSE 58; RESP 16; TEMP 98.7; O2SAT 95
[2017-05-29 20:11] VITALS: BP 143/77; PULSE 61; RESP 18; TEMP 97.7; O2SAT 93
[2017-05-29] MEDS: PRAVASTATIN SOD 40 MG TAB PO SCH (21:36)
[2017-05-29] MEDS: ASPIRIN EC 81 MG TABEC PO SCH (21:37)
[2017-05-30] MEDS: CYCLOBENZAPRINE HCL 10 MG TAB PO SCH ×2 (02:42→10:47)
[2017-05-30 04:11] VITALS: BP 150/82; PULSE 58; RESP 16; TEMP 97.6; O2SAT 93
[2017-05-30] MEDS: MORPHINE SULFATE 15 MG CONTROLLED RELEASE TAB PO SCH ×2 (05:17→14:34)
[2017-05-30 07:37] VITALS: BP 158/87; PULSE 57; RESP 18; TEMP 97.5; O2SAT 92
[2017-05-30] MEDS: SODIUM CHLORIDE 0.9% FLUSH 10 ML FLUSH IV FLUSH SCH (08:22)
[2017-05-30] MEDS: LOSARTAN 50 MG TAB PO SCH (08:23)
[2017-05-30] MEDS: HYDROCHLOROTHIAZIDE 12.5 MG CAP PO SCH (08:23)
[2017-05-30] MEDS: PANTOPRAZOLE SOD 20 MG DELAYED RELEASE TAB PO SCH (08:23)
[2017-05-30] MEDS: ATENOLOL 100 MG TAB PO SCH (08:23)
[2017-05-30] MEDS: DOCUSATE SODIUM 50 MG/SENNA 8.6 MG TAB PO SCH (08:24)
[2017-05-30] MEDS ORDERED: DILA4TAB2 PO (10:01)
[2017-05-30] MEDS ORDERED: CYCL1TAB29 PO (10:01)
--- NOTE | 2017-05-30 10:07 | HHI.DS ---
Discharge Summary Admission Date May 27, 2017 at 8:36 pm Discharge Date: May 30, 2017 Admitting Diagnosis Inability to ambulate, Left hip pain, low back pain. (1) Intractable back pain ICD Code: M54.9 Diagnosis: Principal (2) Hip pain, left ICD Code: M25.552 (3) Chronic back pain ICD Code: G89.29 (4) HTN (hypertension) ICD Code: I10 Procedures None. Brief History - From Admission This is a 76-year-old male with a PMH of Chronic Back Pain, s/p TENS, HTN, Hyperlipidemia and Prostate CA who was brought to the ER secondary to severe back/hip pain and inability to ambulate. Per , pt follows w/ Dr. Durham and underwent spinal steroid injection approx 6 months ago w/ significant improvement in pain/ambulation. Has been walking w/ a cane x10yrs, states unchanged. Over the last 2wks, pt has had progressive increase in pain. states Ortho, Dr. Schmidt out of town at the moment and were seen by PCP, Dr. Pacheco, who referred him to PT. Started Physical Therapy 3 days ago on Tuesday, Tuesday had c/o severe back/left hip pain, states patient unable to get out of bed. No injury/trauma, no incontinence. Pt reports TENS unit is out of battery, scheduled to see Dr. Durham on Jun 07 w/ plans for battery replacement. On arrival, BP 229/114, HR 76, O2 sat 97, Afebrile. CBC unremarkable. Chemistry essentially unremarkable. CT L-spine postop fusion of lumbar spine, no residual bony canal or bony foraminal stenosis. CT Lower Extremity mild ostial arthritis of left hip. CT Pelvis previous fusion of lumbar spine, mild osteo-arthritis of the hips, enlarged prostate. S/p Dilaudid in ER w/ minimal improvement, continues to be unable to ambulate. CBC/BMP: 05/28/17 0450 05/28/17 0450 Significant Findings Laboratory Tests Test 05/27/17 05/28/17 16:40 04:50 Mean Corpuscular Hemoglobin 26.7 PG (27.0-34.0) Neutrophils (%) (Auto) 81.9 % 91.4 % (16.0-70.0) (16.0-70.0) Neutrophils # (Auto) 8.4 TH/MM3 9.3 TH/MM3 (1.8-7.7) (1.8-7.7) Blood Urea Nitrogen 21 MG/DL (7-18) 22 MG/DL (7-18) Estimat Glomerular Filtration 60 ML/MIN (>89) 55 ML/MIN (>89) Rate Mean Corpuscular Volume 79.5 FL (80.0-100.0) Lymphocytes (%) (Auto) 7.4 % (9.0-44.0) Lymphocytes # (Auto) 0.7 TH/MM3 (1.0-4.8) Random Glucose 194 MG/DL (74-106) Aspartate Amino Transf 13 U/L (15-37) (AST/SGOT) Imaging Last Impressions Pelvis CT 05/27/17 1613 Signed Impressions: Service Date/Time: Saturday, May 27, 2017 18:15 - CONCLUSION: 1. Previous fusion of lumbar spine. Mild osteoarthritis of the hips. Enlarged prostate with impression on the base of bladder. No pelvic adenopathy. Hernesto Walls MD Lumbar Spine CT 05/27/17 0000 Signed Impressions: Service Date/Time: Saturday, May 27, 2017 18:10 - CONCLUSION: 1. Postoperative fusion of the lumbar spine as above without significant residual bony canal or bony foraminal stenosis. Findings are similar to an abdomen CT examination from December 2014. Spinal stimulator wires are seen extending into the lower thoracic spinal canal. Hernesto Walls MD Lower Extremity CT 05/27/17 0000 Signed Impressions: Service Date/Time: Saturday, May 27, 2017 18:15 - CONCLUSION: 1. Mild osteoarthritis of the left hip. Hernesto Walls MD PE at Discharge GENERAL: AOX3, NAD. SKIN: Warm and dry. HEAD: Normocephalic. EYES: No scleral icterus. No injection or drainage. NECK: Supple, trachea midline. No JVD or lymphadenopathy. CARDIOVASCULAR: Regular rate and rhythm without murmurs, gallops, or rubs. RESPIRATORY: Breath sounds equal bilaterally. No accessory muscle use. GASTROINTESTINAL: Abdomen soft, non-tender, nondistended. MUSCULOSKELETAL: No cyanosis, or edema. 5/5 strength in b/l Lower ext. BACK: Nontender without obvious deformity. No CVA tenderness. Pt update on day of discharge Patient is doing well. Resting well in bed. No acute concerns. I discussed with him about our discharge plan. I discussed with [facility] ([facility] - they are aware of his admission. He has an appointment on 06/06/2017. The clinic will get in touch with the patient. Hospital Course This is a 76-year-old male with a PMH of Chronic Back Pain, s/p TENS, HTN, Hyperlipidemia and Prostate CA who was brought to the ER secondary to severe back/hip pain and inability to ambulate. Patient follows w/ Dr. Durham and underwent spinal steroid injection approx 6 months ago w/ significant improvement in pain/ambulation. He has been experiencing progressive increase in pain in the last two weeks. On arrival, BP 229/114, HR 76, O2 sat 97, Afebrile. CBC unremarkable. Chemistry essentially unremarkable. CT L-spine postop fusion of lumbar spine, no residual bony canal or bony foraminal stenosis. CT Lower Extremity mild ostial arthritis of left hip. CT Pelvis previous fusion of lumbar spine, mild osteo-arthritis of the hips, enlarged prostate. - Intractable acute on chronic back pain - Discussed with PT. Patient does well when he starts to ambulate but then progressively gets worse. - PT and patient feels that his lower back spasm prevents better ambulation. - Flexeril 10mg TID. - Continue Oxycodone PRN for pain and Dilaudid IV for breakthrough. D/C Valium. - Discussed with patient's who would prefer it if patient could get a spinal steroid while he is in the hospital. - Discussed with IR - they usually do outpatient basis steroid injection. - Discussed with Dr. Durham's clinic - they will contact patient. Patient has an appt on 06/06/2017. - Left hip pain - CT Pelvis w/ mild osteoarthritis, CT Lower Extremity w/ mild osteoarthritis of left hip - Outpatient evaluation by orthopedic surgery would be beneficial. - Uncontrolled hypertension - Currently normotensive. - Continue Amlodipine 10mg Qday, Atenolol 100mg Qday, Losartan 50mg Qday and HCTZ 12.5mg Qday. - Hyperlipidemia - Continue Pravastatin - GERD - Protonix 20mg BID. Full code. SCDs. Pt Condition on Discharge: Good Discharge Disposition: Rehab Inpatient Discharge Time: > 30 minutes Discharge Instructions DIET: Follow Instructions for: Heart Healthy Diet Activities you can perform: Regular-No Restrictions Follow up Referrals: Pain Management - 1 Week with Jose Luis Durham MD New Medications: Hydromorphone (Dilaudid) 4 Mg Tab 4 MG PO Q6H PRN Pain Management #20 Ref 0 TAB Cyclobenzaprine (Flexeril) 10 Mg Tab 10 MG PO Q8H muscle spasm #30 TAB Continued Medications: Amlodipine (Amlodipine) 10 Mg Tab 10 MG PO DAILY Blood Pressure Management #[address] Ref [address] (Aspirin 81) 81 Mg Tabdr 81 MG PO HS Ref 0 TAB Atenolol (Atenolol) 100 Mg Tab 100 MG PO DAILY Blood Pressure Management #30 Ref 0 TAB Hydrochlorothiazide (Hydrochlorothiazide) 12.5 Mg Tab 12.5 MG PO DAILY #30 Ref 0 TAB Losartan (Losartan) 50 Mg Tab 50 MG PO DAILY Blood Pressure Management #30 Ref 0 TAB Omeprazole (Omeprazole) 20 Mg Cap 20 MG PO BID Pravastatin (Pravastatin) 40 Mg Tab 40 MG PO HS Cholesterol Management #30 Ref 0 TAB Discontinued Medications: Oxycodone-Acetaminophen (Percocet) 10-325 mg Tab 1 TAB PO BID Pain Management Ref 0 TAB Yazmin Mujica DO May 30, 2017 10:07
[2017-05-30] MEDS ORDERED: WHEEMIS3 (10:15)
[2017-05-30] MEDS: HYDROmorphone HCL PF 1 MG/ML VIAL IV PRN (10:47)
[2017-05-30 11:29] VITALS: BP 116/65; PULSE 58; RESP 18; TEMP 97.7; O2SAT 92
[2017-06-01] MEDS ORDERED: [UNRECOGNIZED DRUG - SUPPLY] (13:07)
[2017-06-02] MEDS ORDERED: OMEP20CA2 PO (14:43)
[2017-06-02] MEDS ORDERED: GABA100C4 PO (14:43)
[2017-06-02] MEDS ORDERED: LOSA50TA PO (14:43)
[2017-06-02] MEDS ORDERED: COZA25TA PO (14:43)
[2017-06-02] MEDS ORDERED: CYCL1TAB29 PO (14:43)
[2017-06-02] MEDS ORDERED: PRAV40TA2 PO (14:43)
[2017-06-02] MEDS ORDERED: DILA4TAB2 PO (14:43)
[2017-06-02] MEDS ORDERED: AMLO10TA2 PO (14:43)
[2017-06-02] MEDS ORDERED: ATEN100T PO (14:43)
[2017-06-02] MEDS ORDERED: HYDR12.56 PO (14:43)
[2017-06-02] MEDS ORDERED: ASPI-110 PO (14:43)
[2017-06-06] MEDS ORDERED: LIDO5DIS5 T-DERMAL (09:43)
[2017-06-06] MEDS ORDERED: SENN1TAB PO (09:43)
[2017-06-06] MEDS ORDERED: GABA100C4 PO (09:45)
[2017-06-06] MEDS ORDERED: DILA2TAB2 PO (09:46)
[2017-06-06] MEDS ORDERED: OXYC1TAB35 PO (09:47)
== END 2017-05-30 15:00 | disposition home or self-care (01) ==
LOC: NEPD 14:53 → NEDA 20:36 → NEDH 05-28 02:33 → NEPHCDU 05-28 05:20
PROVIDERS: ADMIT Hospitalist; ATTEND Hospitalist
DX: M54.5 Low back pain (principal); M25.552 Pain in left hip; G89.29 Other chronic pain; R10.2 Pelvic and perineal pain; M62.830 Muscle spasm of back; I10 Essential (primary) hypertension; E78.5 Hyperlipidemia, unspecified; E78.00 Pure hypercholesterolemia, unspecified; M16.12 Unilateral primary osteoarthritis, left hip; K21.9 Gastro-esophageal reflux disease without esophagitis; M25.551 Pain in right hip; M79.605 Pain in left leg; M54.2 Cervicalgia; N40.0 Benign prostatic hyperplasia without lower urinary tract symptoms; Z79.899 Other long term (current) drug therapy; Z79.82 Long term (current) use of aspirin; Z85.46 Personal history of malignant neoplasm of prostate; Z86.718 Personal history of other venous thrombosis and embolism; Z86.73 Personal history of transient ischemic attack (TIA), and cerebral infarction without residual deficits; Z98.1 Arthrodesis status
CPT/HCPCS: 72132; 72193; 73701; 80048; 80053; 85025; 85652; 86140; 96374; 97110; 97116; 97162; 99285; G0378; G8987; G8988; J0360; J1170; J2930; Q9967